=== PATIENT | male | born 1995 | race African-American/Black ===

== ENCOUNTER 2017-05-22 19:35 | Emergency (ER) | payer OTHER ==
[~2017-05-22] VITALS: Ht 162.6 cm; Wt 59.0 kg
[2017-05-22] MEDS ORDERED: ACETAMINOPHEN 325MG TABLET PO ONE (23:45)
[2017-05-23] MEDS ORDERED: KETOROLAC 60MG/2ML VIAL IM ONE (01:00)
[2017-05-23 01:50] VITALS: BP 118/64
== END 2017-05-23 01:57 | disposition home or self-care (01) ==
LOC: ER 19:35
DX: S06.9X9A Unspecified intracranial injury with loss of consciousness of unspecified duration, initial encounter (principal); S02.40CA Maxillary fracture, right side, initial encounter for closed fracture; S00.11XA Contusion of right eyelid and periocular area, initial encounter; Y04.8XXA Assault by other bodily force, initial encounter; Y93.89 Activity, other specified; Y92.89 Other specified places as the place of occurrence of the external cause; Z98.890 Other specified postprocedural states
CPT/HCPCS: 70450; 70486; 96372; 99284; J1885; Z7610